=== PATIENT | female | born 1975 | race Caucasian/White ===

== ENCOUNTER → 2016-09-22 | Outpatient (CLI) | payer OTHER ==
--- NOTE | 2016-09-22 08:31 | DX ---
Left Third Finger, Three Views History: Trauma, pain. Comparison: None available. Findings: There is a minimally displaced avulsion fracture of the palmar aspect of the base of the mi ddle phalanx of the third finger. Alignment is normal. Bone mineralization is normal. There is no sig nificant degenerative change. There is no focal soft tissue swelling. Impression: Minimally displaced volar plate avulsion fracture.
== END ==
LOC: CIMAGING 07:19
PROVIDERS: ATTEND Emergency Medicine
DX: S62.603A Fracture of unspecified phalanx of left middle finger, initial encounter for closed fracture (principal)
CPT/HCPCS: 73140-PO